=== PATIENT | female | born 1975 | race Caucasian/White ===

== ENCOUNTER 2017-01-28 08:28 | Day surgery (SDC) | payer BC ==
[~2017-01-28] VITALS: Ht 167.6 cm; Wt 54.0 kg
[~2017-01-28 08:28] MED LIST: BIOTIN 5000MCG PO; CELEXA20 MG PO; FIORICET,ESG1 TABLET PO; MULTIVITAMIN1 EAC2 PO; VALTREX50 MG/ML PO; ZOFRAN4 MG PO
[2017-01-28 09:06] VITALS: BP 106/68
[2017-01-28 13:20] VITALS: BP 109/75
[2017-01-28 13:58] VITALS: BP 106/71
== END 2017-01-28 14:07 | disposition home or self-care (01) ==
LOC: SDC 08:28 → 2SOUTH 14:11 → EDSTATUS 14:11 → SDC 14:12
PROC: 0HBT0ZX Excision of Right Breast, Open Approach, Diagnostic (ICD-10-PCS; principal; 2017-01-28)
DX: N60.21 Fibroadenosis of right breast (principal); L30.9 Dermatitis, unspecified; K31.84 Gastroparesis; Z82.49 Family history of ischemic heart disease and other diseases of the circulatory system; Z80.0 Family history of malignant neoplasm of digestive organs; Z88.2 Allergy status to sulfonamides
CPT/HCPCS: 88305; 88342 TC; J0690; J1100; J1885; J2250; J2405; J3010; S0020